=== PATIENT | male | born 1995 | race Asian ===

== ENCOUNTER 2023-07-01 01:50 | Emergency (ER) | payer OTHER ==
[~2023-07-01] VITALS: Ht 172.7 cm; Wt 118.0 kg
[2023-07-01] MEDS ORDERED: IBUPROFEN 600MG TABLET PO ONE (02:30)
[2023-07-01] MEDS ORDERED: PROPOFOL 200MG/20ML VIAL IV ONE (03:00)
[2023-07-01] MEDS ORDERED: SODIUM CHLORIDE 0.9% 1,000 ML IV ONE (03:00)
[2023-07-01 04:20] VITALS: O2SAT 98
[2023-07-01] MEDS ORDERED: IBUP-2029 MT (05:07)
[2023-07-01 06:20] VITALS: BP 127/72; PULSE 98; RESP 15; TEMP 98.5
== END 2023-07-01 06:44 | disposition home or self-care (01) ==
LOC: ER 01:50
DX: S43.005A Unspecified dislocation of left shoulder joint, initial encounter (principal); Z00.00 Encounter for general adult medical examination without abnormal findings; W01.0XXA Fall on same level from slipping, tripping and stumbling without subsequent striking against object, initial encounter; Y93.89 Activity, other specified; Y92.89 Other specified places as the place of occurrence of the external cause; Y99.8 Other external cause status
CPT/HCPCS: 99285; 23650; 96360; 73030; 99152; J2704